=== PATIENT | male | born 1985 | race Caucasian/White ===

== ENCOUNTER 2016-05-21 18:44 | Emergency (ER) | payer MEDICAID ==
[~2016-05-21] VITALS: Ht 167.6 cm; Wt 72.6 kg
[2016-05-21 18:44] VITALS: BP 123/69; PULSE 82; RESP 20; TEMP 98.2; O2SAT 100
--- NOTE | 2016-05-21 18:44 | NUR ---
Pt BIB [facility] and placed to ER bed 08. Pt in cuffs, with c/o redness to wrist, Right shoulder pain, cut to forehead. Cut to forehead appears as an abrasion with scabbing noted.
--- NOTE | 2016-05-21 18:50 | NUR ---
Dr. Lozano at bedside to assess pt.
[2016-05-21 18:55] VITALS: BP 125/72; PULSE 80; RESP 20; TEMP 98.6; O2SAT 100
--- NOTE | 2016-05-21 18:55 | NUR ---
Line Welder and Patient given written and verbal discharge instructions and verbalizes understanding. ER MD discussed with patient the results and treatment provided. Patient in stable condition, leaves in cuffs in c/o juvenile detention officer. ID arm band removed. Patient educated on pain management and to follow up with PMD. Pain Scale 2/10. Opportunity for questions provided and answered.
== END 2016-05-21 18:55 ==
LOC: SED 18:44
DX: Z02.89 Encounter for other administrative examinations (principal); S00.81XA Abrasion of other part of head, initial encounter; M25.531 Pain in right wrist; M25.532 Pain in left wrist; W45.8XXA Other foreign body or object entering through skin, initial encounter; Y93.89 Activity, other specified; Y99.8 Other external cause status; Y92.89 Other specified places as the place of occurrence of the external cause
CPT/HCPCS: 99283